=== PATIENT | female | born 1940 | race Two or more races ===

== ENCOUNTER 2022-11-05 20:56 | Emergency (ER) | payer OTHER ==
[~2022-11-05] VITALS: Ht 152.4 cm; Wt 62.6 kg
[~2022-11-05 20:56] MED LIST: METFORMIN HCL500 MG; NORVASC5 MG; ZOCOR20 MG
== END 2022-11-06 00:05 | disposition home or self-care (01) ==
LOC: ER 20:56
DX: L50.8 Other urticaria (principal); E11.9 Type 2 diabetes mellitus without complications; Z79.84 Long term (current) use of oral hypoglycemic drugs
CPT/HCPCS: 96365; 99283; J1200; J2930; J3490

== ENCOUNTER 2023-03-14 08:43 | Emergency (ER) | payer OTHER ==
[~2023-03-14] VITALS: Ht 160 cm; Wt 61.2 kg
[2023-03-14 10:56] LABS: HEMATOCRIT 32.5 % (36.0-45.00); HEMOGLOBIN 10.9 g/dL (12.0-15.00); MEAN CELL VOLUME 105.2 fL (80.00-100.00); MEAN CORPUSCULAR HEMOGLOBIN 35.2 pg (27.00-32.0); MEAN CORPUSCULAR HGB CONC 33.5 g/dl (32.0-36.0); PLATELET COUNT 237 K/uL (150-450); RED BLOOD COUNT 3.09 M/uL (4.00-6.00)
[2023-03-14 10:58] LABS: RED CELL DISTRIBUTION WIDTH 20.3 % (11.5-14.5)
[2023-03-14 11:43] LABS: ALBUMIN 3.3 gm/dL (3.4-5.0); BILIRUBIN TOTAL 0.71 mg/dL (0.3-1.2); CALCIUM 9.1 mg/dL (8.5-10.1); CREATININE SERUM 1.04 mg/dL (0.55-1.02); GFR 50.61; GLOBULINA 2.3 G/DL (2.4-3.5); POTASSIUM 4.14 mEq/L (3.5-5.1); TOTAL PROTEIN 5.6 gm/dL (6.4-8.2)
[2023-03-14 11:57] LABS: PH,URINE 5.5 (5.0-8.0); URINE APPEARANCE Clear; URINE BILIRRUBIN Negative (NEGATIVE); URINE BLOOD Moderate; URINE COLOR Yellow; URINE GLUCOSE Negative (NEGATIVE); URINE LEUKOCYTE Negative; URINE NITRATE Negative; URINE PROTEIN Trace (NEGATIVE); URINE UROBILINOGEN 0.2 E.U./dl
[2023-03-14 12:01] LABS: URINE BACTERIA 17.6 uL (0.0-1933); URINE EPITHELIAL CELLS 12.5 uL (0.0-38.8); URINE RBC 41.1 uL (0.0-20.8); URINE WBC 3.8 uL (0.0-23.2)
== END 2023-03-14 16:30 | disposition home or self-care (01) ==
LOC: ER
PROVIDERS: Emergency Medicine
DX: R53.81 Other malaise (principal); I10 Essential (primary) hypertension; E11.9 Type 2 diabetes mellitus without complications; Z79.84 Long term (current) use of oral hypoglycemic drugs

== ENCOUNTER 2023-03-19 09:58 | Emergency (ER) | payer OTHER ==
[~2023-03-19] VITALS: Ht 162.6 cm; Wt 62.6 kg
[2023-03-19 11:01] LABS: HEMATOCRIT 34.1 % (36.0-45.00); HEMOGLOBIN 11.2 g/dL (12.0-15.00); MEAN CELL VOLUME 100.9 fL (80.00-100.00); MEAN CORPUSCULAR HEMOGLOBIN 33.2 pg (27.00-32.0); MEAN CORPUSCULAR HGB CONC 32.9 g/dl (32.0-36.0); PLATELET COUNT 277 K/uL (150-450); RED BLOOD COUNT 3.38 M/uL (4.00-6.00); RED CELL DISTRIBUTION WIDTH 20.1 % (11.5-14.5)
[2023-03-19 11:23] LABS: CALCIUM 9.8 mg/dL (8.5-10.1); CREATININE SERUM 1.04 mg/dL (0.55-1.02); GFR 50.61; POTASSIUM 3.8 mEq/L (3.5-5.1)
[2023-03-19 11:58] LABS: URINE APPEARANCE Clear; URINE BILIRRUBIN Negative (NEGATIVE); URINE BLOOD Small; URINE COLOR Yellow; URINE GLUCOSE Negative (NEGATIVE); URINE LEUKOCYTE Negative; URINE NITRATE Negative; URINE PROTEIN 30 (NEGATIVE); URINE UROBILINOGEN 0.2 E.U./dl
[2023-03-19 11:59] LABS: URINE BACTERIA 7.5 uL (0.0-1933); URINE EPITHELIAL CELLS 3.8 uL (0.0-38.8)
[2023-03-19 12:05] LABS: URINE WBC 1.3 uL (0.0-23.2)
== END 2023-03-19 14:08 | disposition home or self-care (01) ==
LOC: ER
PROVIDERS: General Practice
DX: R10.9 Unspecified abdominal pain (principal); I10 Essential (primary) hypertension; E11.9 Type 2 diabetes mellitus without complications; Z79.84 Long term (current) use of oral hypoglycemic drugs
CPT/HCPCS: 36415; 96365; 99282; J2765; J3490